=== PATIENT | male | born 1960 | race Caucasian/White ===

== ENCOUNTER → 2017-03-19 | Outpatient (CLI) | payer OTHER ==
[~2017-03-19] MED LIST: ASPI325T17 PO; ATOR10TA PO; CELE100C PO; CHOL500045 PO; GLUC1TAB55 PO; LISI5TAB7 PO; METFORMIN PO; METO50TA82 PO; MULT-658 PO
== END | disposition home or self-care (01) ==
LOC: CFH 08:40
PROVIDERS: ATTEND Family Medicine
DX: Z12.2 Encounter for screening for malignant neoplasm of respiratory organs (principal); R91.1 Solitary pulmonary nodule; I25.10 Atherosclerotic heart disease of native coronary artery without angina pectoris; F17.210 Nicotine dependence, cigarettes, uncomplicated
CPT/HCPCS: G0297

== ENCOUNTER → 2017-06-06 | Outpatient (CLI) | payer OTHER ==
[~2017-06-06] MED LIST changes: +OMNIPAQUE 350 MG/ML, 100ML BOTTLE ONE
== END ==
LOC: CFH 11:27
PROVIDERS: ATTEND Physician Assistant Medical
DX: K76.0 Fatty (change of) liver, not elsewhere classified (principal); E66.9 Obesity, unspecified; R63.8 Other symptoms and signs concerning food and fluid intake; G47.30 Sleep apnea, unspecified; Z72.4 Inappropriate diet and eating habits; Z87.891 Personal history of nicotine dependence
CPT/HCPCS: 74177; Q9967

== ENCOUNTER 2017-08-21 14:26 | Day surgery (SDC) | payer OTHER ==
[~2017-08-21] VITALS: Ht 195.6 cm; Wt 118.2 kg
[~2017-08-21 14:26] MED LIST changes: +CHOL5000 PO; +CYCL-259 PO; +HYDR-3237 PO; -OMNIPAQUE 350 MG/ML, 100ML BOTTLE ONE; +gabapentin PO
[2017-08-21] MEDS ORDERED: LACTATED RINGERS 1,000 ML IV SCH (14:56)
[2017-08-21 14:57] VITALS: BP 134/79
[2017-08-21] MEDS ORDERED: EPINEPHRINE 1 MG/ML, 1ML ONE (16:45)
[2017-08-21] MEDS ORDERED: BUPIVACAINE/PF 0.5% ONE (16:45)
[2017-08-21] MEDS ORDERED: FENTANYL PF 250 MCG/5ML ONE (16:50)
[2017-08-21] MEDS ORDERED: MIDAZOLAM 1 MG/ML, 2ML ONE (16:50)
[2017-08-21] MEDS ORDERED: ROCURONIUM 10 MG/ML,10ML ONE (17:27)
[2017-08-21] MEDS ORDERED: PROPOFOL 10 MG/ML, 20ML ONE (17:27)
[2017-08-21] MEDS ORDERED: ONDANSETRON 2MG/ML, 2ML ONE (17:27)
[2017-08-21] MEDS ORDERED: CEFAZOLIN 1,000 MG ONE (17:27)
[2017-08-21] MEDS ORDERED: SUCCINYLCHOLINE 20 MG/ML, 10ML ONE (17:27)
[2017-08-21] MEDS ORDERED: DEXAMETHASONE 4 MG/ML, 1ML ONE (17:27)
[2017-08-21] MEDS ORDERED: BUPIVACAINE/PF-EPI 0.5% 1:200K IM ONE (17:59)
[2017-08-21] MEDS ORDERED: MEPERIDINE/PF 25MG/0.5ML IVPush PRN ×2 (18:00)
[2017-08-21] MEDS ORDERED: HYDROmorphone 1 MG/ML, 1ML IV PRN ×2 (18:00)
[2017-08-21] MEDS ORDERED: KETOROLAC 30 MG/1 ML IV PRN ×2 (18:00)
[2017-08-21] MEDS ORDERED: hydrALAzine 20 MG/ML, 1ML IV PRN ×2 (18:00)
[2017-08-21] MEDS ORDERED: ALBUTEROL SULFATE 2.5 MG/3 ML NPPB PRN ×2 (18:00)
[2017-08-21] MEDS ORDERED: LABETALOL 5MG/ML, 20ML IV PRN ×2 (18:00)
[2017-08-21] MEDS ORDERED: ONDANSETRON 2MG/ML, 2ML IVPush PRN ×3 (18:00→19:00)
[2017-08-21] MEDS ORDERED: FENTANYL PF 100 MCG/2ML IV PRN (18:00)
[2017-08-21] MEDS ORDERED: OXYcodone 5 MG/5 ML ORAL.SOL UDC PO PRN ×2 (18:00→19:00)
[2017-08-21] MEDS ORDERED: PROMETHAZINE 25 MG/ML, 1ML IV PRN ×2 (18:00)
[2017-08-21] MEDS ORDERED: METOCLOPRAMIDE 5 MG/ML, 2ML IV PRN ×2 (18:00)
[2017-08-21] MEDS ORDERED: OXYcodone 5 MG/5 ML ORAL.SOL UDC ONE (18:48)
[2017-08-21] MEDS ORDERED: FENTANYL PF 100 MCG/2ML ONE (18:48)
[2017-08-21] MEDS: OXYcodone 5 MG/5 ML ORAL.SOL UDC PO PRN ×2 (18:55→22:59)
[2017-08-21] MEDS: FENTANYL PF 100 MCG/2ML IV PRN ×2 (18:55→19:10)
[2017-08-21] MEDS: morphine SULFATE 10 MG/ML, 1ML IVPush PRN ×3 (21:39→22:23)
== END 2017-08-21 23:52 | disposition home or self-care (01) ==
LOC: OR 14:26 → 4NOR 19:49 → OR 23:52
PROVIDERS: ATTEND Surgery
DX: K40.90 Unilateral inguinal hernia, without obstruction or gangrene, not specified as recurrent (principal); K42.0 Umbilical hernia with obstruction, without gangrene; D17.6 Benign lipomatous neoplasm of spermatic cord; I10 Essential (primary) hypertension; F17.210 Nicotine dependence, cigarettes, uncomplicated; Z88.0 Allergy status to penicillin; Z95.1 Presence of aortocoronary bypass graft; Z98.890 Other specified postprocedural states
CPT/HCPCS: 49650; 49653; C1781; J0171; J0330; J0690; J1100; J2250; J2270; J2405; J2704; J3010; J3490; J7120; S2900

== ENCOUNTER 2018-03-25 11:06 | Outpatient (CLI) | payer OTHER | END 2018-03-25 23:59 | disposition home or self-care (01) | LOC: CFH 11:06 | PROVIDERS: ATTEND Family Medicine | DX: Z12.2 Encounter for screening for malignant neoplasm of respiratory organs (principal); R91.1 Solitary pulmonary nodule; F17.210 Nicotine dependence, cigarettes, uncomplicated | CPT/HCPCS: G0297 ==

== ENCOUNTER → 2019-05-05 | Outpatient (CLI) | payer OTHER | END | disposition home or self-care (01) | LOC: CFH 10:00 | PROVIDERS: ATTEND Family Medicine | DX: Z12.2 Encounter for screening for malignant neoplasm of respiratory organs (principal); R91.8 Other nonspecific abnormal finding of lung field; Z87.891 Personal history of nicotine dependence | CPT/HCPCS: G0297 ==

== ENCOUNTER 2019-07-25 08:33 | Emergency (ER) | payer OTHER ==
[~2019-07-25] VITALS: Ht 193 cm; Wt 122.0 kg
[2019-07-25] MEDS ORDERED: SODIUM CHLORIDE 0.9% 1,000ML IVBOLUS ONE (10:00)
[2019-07-25 10:18] LABS: BASOPHILS # (AUTO) 0.02 x10^3/uL (0-0.1); BASOPHILS % (AUTO) 0 % (0-1); EOSINOPHILS # (AUTO) 0.01 x10^3/uL (0-0.4); EOSINOPHILS % (AUTO) 0 % (1-7); LYMPHOCYTES # (AUTO) 0.86 x10^3/uL (1-3.4); LYMPHOCYTES % (AUTO) 12 % (22-44); MD NO; MEAN CORPUSCULAR HEMOGLOBIN 30.8 pg (27.5-34.5); MEAN CORPUSCULAR HGB CONC 33.3 g/dL (33.2-36.2); MEAN CORPUSCULAR VOLUME 92.4 fL (81-97); MEAN PLATELET VOLUME 8.4 fL (7.4-10.4); MONOCYTES # (AUTO) 0.37 x10^3/uL (0.2-0.8); MONOCYTES % (AUTO) 5 % (2-9); NEUTROPHILS # (AUTO) 6.25 x10^3/uL (1.8-6.8); NEUTROPHILS % (AUTO) 83 % (42-75); PLATELET COUNT 252 x10^3/uL (130-400); RED BLOOD COUNT 4.99 x10^6/uL (4.38-5.82); RED CELL DISTRIBUTION WIDTH 14.1 % (9.4-14.8)
[2019-07-25] MEDS ORDERED: ATOR40TA PO (10:24)
[2019-07-25 10:26] LABS: ANION GAP 11 mmol/L (5-15); CALCIUM 9.2 mg/dL (8.5-10.1); CHLORIDE 109 mmol/L (98-107)
[2019-07-25 10:36] LABS: CREATININE 0.74 mg/dL (0.7-1.3)
[2019-07-25 10:59] LABS: MICROSCOPIC NOT IND
--- NOTE | 2019-07-25 11:20 | NUR ---
ORTHO STATICS DONE. PT BP STABLE IN ALL POSTIONS.
--- NOTE | 2019-07-25 12:23 | NUR ---
AMBULATED PT. PT AMBULATED STEADY GAIT AND WITHOUT ASSISTANCE.
[2019-07-25 12:58] VITALS: BP 136/77
== END 2019-07-25 13:06 | disposition home or self-care (01) ==
LOC: ED 09:20
DX: R55 Syncope and collapse (principal); R42 Dizziness and giddiness; R41.9 Unspecified symptoms and signs involving cognitive functions and awareness; R00.0 Tachycardia, unspecified; F17.210 Nicotine dependence, cigarettes, uncomplicated; G43.909 Migraine, unspecified, not intractable, without status migrainosus; E78.5 Hyperlipidemia, unspecified; E66.9 Obesity, unspecified; Z68.37 Body mass index [BMI] 37.0-37.9, adult
CPT/HCPCS: 36415; 80048; 81003; 84443; 85025; 93005; 96360; 96361; 99285; J7030; 82962

== ENCOUNTER 2019-08-11 07:30 | Outpatient (CLI) | payer OTHER ==
[~2019-08-11 07:30] MED LIST changes: +ATOR40TA PO
[2019-08-11] MEDS ORDERED: GADOTERATE 10 MMOL/20 ML VIAL ONE (10:36)
== END 2019-08-11 23:59 | disposition home or self-care (01) ==
LOC: RAD 07:30
PROVIDERS: ATTEND Psychiatry & Neurology Neurology
DX: I66.22 Occlusion and stenosis of left posterior cerebral artery (principal); H81.13 Benign paroxysmal vertigo, bilateral; G45.1 Carotid artery syndrome (hemispheric)
CPT/HCPCS: 70545; 70548; 70553; A9575

== ENCOUNTER 2019-10-22 14:02 | Inpatient (IN) | payer OTHER ==
[~2019-10-22] VITALS: Ht 195.6 cm; Wt 118.2 kg
--- NOTE | 2019-10-22 14:15 | NUR ---
Code Neuro called @ 1351 after [facility] pre-alert. Neurology paged on patients arrival. Dr. Saini called back immediately and spoke with Dr. Cabello.
[2019-10-22] MEDS ORDERED: OMNIPAQUE 350 MG/ML, 100ML BOTTLE ONE (14:28)
--- NOTE | 2019-10-22 14:31 | NUR ---
TRIAGE BY THIS RN. ON RETURN FROM CT, NEURO EXAM WNL WITH DR AKHTAR. NEUROLOGIST IN TO SEE PT. PT NOW WITH DIFFICULTY FOLLOWING COMMANDS, IMPAIRED SPEECH-PT UNABLE TO USE CORRECT WORDS OR FORM FULL SENTENCES OR ANSWER QUESTIONS APPROPRIATELY. REPORT TO PRIMARY RNJUAN CARLOS.
[2019-10-22 14:44] LABS: BASOPHILS # (AUTO) 0.01 x10^3/uL (0-0.1); BASOPHILS % (AUTO) 0 % (0-1); EOSINOPHILS % (AUTO) 0 % (1-7); LYMPHOCYTES # (AUTO) 0.72 x10^3/uL (1-3.4); LYMPHOCYTES % (AUTO) 13 % (22-44); MD NO; MEAN CORPUSCULAR HEMOGLOBIN 30.4 pg (27.5-34.5); MEAN CORPUSCULAR HGB CONC 33.8 g/dL (33.2-36.2); MEAN CORPUSCULAR VOLUME 89.9 fL (81-97); MEAN PLATELET VOLUME 8.6 fL (7.4-10.4); MONOCYTES # (AUTO) 0.34 x10^3/uL (0.2-0.8); MONOCYTES % (AUTO) 6 % (2-9); NEUTROPHILS # (AUTO) 4.65 x10^3/uL (1.8-6.8); NEUTROPHILS % (AUTO) 81 % (42-75); PLATELET COUNT 222 x10^3/uL (130-400); RED CELL DISTRIBUTION WIDTH 13.7 % (9.4-14.8)
[2019-10-22 14:54] LABS: TROPONIN I < 0.015 ng/mL (0.000-0.045)
[2019-10-22] MEDS ORDERED: LORazepam 2 MG/ML, 1ML ONE (14:55)
--- NOTE | 2019-10-22 15:18 | NUR ---
PT TO MRI NOW
--- NOTE | 2019-10-22 15:27 | NUR ---
RECEIVED REPORT FROM JUAN CARLOS. PT HAS NOT RETURNED FROM MRI.
--- NOTE | 2019-10-22 15:50 | NUR ---
PT RETURNED FROM MRI, RESTING COMFORTABLY ON GURNEY WITH EYES CLOSED. COMFORT MEASURES ADDRESSED, AT BEDSIDE, CALL LIGHT WITHIN REACH.
[2019-10-22] MEDS ORDERED: LORazepam 2 MG/ML, 1ML IVPush ONE (16:00)
--- NOTE | 2019-10-22 16:05 | NUR ---
PT TRANSFERED TO T3 UPON MRI RESULT. RETURNED TO CARE OF PRIMARY RN JUAN CARLOS.
[2019-10-22] MEDS: SODIUM CHLORIDE 0.9% 1,000 ML IV SCH (16:15)
[2019-10-22] MEDS ORDERED: ONDANSETRON 2MG/ML, 2ML IVPush PRN (16:30)
[2019-10-22] MEDS ORDERED: OXYcodone IR 5MG TABLET PO PRN (16:30)
[2019-10-22] MEDS ORDERED: ALTEPLASE 81 MG in VIAL 1 EACH IV ONE (16:30)
[2019-10-22] MEDS ORDERED: POLYETHYLENE GLYCOL 17 GM PACKET PO PRN (16:30)
[2019-10-22] MEDS ORDERED: ALTEPLASE 9 MG in SYRINGE 1 EA IVPush ONE (16:30)
[2019-10-22] MEDS ORDERED: LABETALOL 5MG/ML, 20ML IVPush PRN (16:30)
[2019-10-22] MEDS ORDERED: ENALAPRILAT 1.25 MG/ML, 2ML IVPush PRN (16:30)
[2019-10-22] MEDS ORDERED: ALTEPLASE IV ONE (16:30)
[2019-10-22] MEDS ORDERED: BISACODYL 10 MG SUPP PR PRN (16:30)
[2019-10-22] MEDS ORDERED: ACETAMINOPHEN 325 MG TABLET PO PRN (16:30)
[2019-10-22 16:31] LABS: INTERNATIONAL NORMALIZED RATIO 1.04 (0.93-1.1); PROTHROMBIN TIME 10.7 Seconds (9.6-11.5)
[2019-10-22] MEDS ORDERED: ONDANSETRON 2MG/ML, 2ML ONE (16:44)
[2019-10-22] MEDS ORDERED: ALTEPLASE 1 ML ONE (16:59)
[2019-10-22] MEDS ORDERED: ONDANSETRON 2MG/ML, 2ML IVPush ONE (17:00)
--- NOTE | 2019-10-22 17:18 | NUR ---
PT RESTING COMFORTABLY IN BED. AT BEDSIDE. Q [address] REFER TO [facility] NEURO FLOW SHEET.
[2019-10-22] MEDS: ATORVASTATIN 80 MG TABLET PO SCH (20:20)
[2019-10-22 22:10] VITALS: BP 112/68
[2019-10-23] MEDS ORDERED: LORazepam 2 MG/ML, 1ML IVPush ONE (02:00)
[2019-10-23] MEDS ORDERED: LORazepam 2 MG/ML, 1ML IM PRN ×2 (02:00)
[2019-10-23] MEDS ORDERED: LORazepam 2 MG/ML, 1ML ONE (02:06)
[2019-10-23] MEDS ORDERED: HALOPERIDOL 5 MG/ML ONE (02:12)
[2019-10-23] MEDS: HALOPERIDOL 5 MG/ML IM PRN ×2 (02:16→10:54)
[2019-10-23] MEDS: SODIUM CHLORIDE 0.9% 1,000 ML IV SCH (03:40)
[2019-10-23] MEDS ORDERED: PROMETHAZINE 25 MG/ML, 1ML IM PRN (04:00)
[2019-10-23 04:19] VITALS: BP 136/78
[2019-10-23] MEDS: SENNA/DOCUSATE TABLET PO SCH (09:00)
[2019-10-23] MEDS ORDERED: ZIPRASIDONE 20MG CAPSULE PO PRN (10:00)
[2019-10-23] MEDS: ZIPRASIDONE 20 MG INJ IM PRN (16:19)
[2019-10-23 17:22] LABS: BASOPHILS # (AUTO) 0.03 x10^3/uL (0-0.1); BASOPHILS % (AUTO) 0 % (0-1); EOSINOPHILS % (AUTO) 0 % (1-7); LYMPHOCYTES # (AUTO) 1.01 x10^3/uL (1-3.4); LYMPHOCYTES % (AUTO) 14 % (22-44); MD NO; MEAN CORPUSCULAR HEMOGLOBIN 30.1 pg (27.5-34.5); MEAN CORPUSCULAR VOLUME 91.3 fL (81-97); MEAN PLATELET VOLUME 8.5 fL (7.4-10.4); MONOCYTES # (AUTO) 0.35 x10^3/uL (0.2-0.8); MONOCYTES % (AUTO) 5 % (2-9); NEUTROPHILS # (AUTO) 5.92 x10^3/uL (1.8-6.8); NEUTROPHILS % (AUTO) 81 % (42-75); PLATELET COUNT 209 x10^3/uL (130-400); RED BLOOD COUNT 5.28 x10^6/uL (4.38-5.82); RED CELL DISTRIBUTION WIDTH 13.3 % (9.4-14.8)
[2019-10-23 17:28] LABS: ALANINE AMINOTRANSFERASE 17 U/L (12-78); ALBUMIN 3.6 g/dL (3.4-5.0); ANION GAP 7 mmol/L (5-15); CALCIUM 9.5 mg/dL (8.5-10.1); CHLORIDE 107 mmol/L (98-107); CREATININE 0.67 mg/dL (0.7-1.3)
[2019-10-23 17:30] LABS: ALKALINE PHOSPHATASE 87 U/L (45-117); BILIRUBIN,TOTAL 0.5 mg/dL (0.2-1.0); TOTAL PROTEIN 7.8 g/dL (6.4-8.2)
[2019-10-23 20:00] VITALS: BP 133/78
[2019-10-23] MEDS: D5%-0.9% NACL 1,000 ML IV SCH (20:22)
[2019-10-23] MEDS: ATORVASTATIN 80 MG TABLET PO SCH (20:22)
[2019-10-24 02:00] VITALS: BP 108/48
[2019-10-24 04:58] LABS: BASOPHILS # (AUTO) 0.05 x10^3/uL (0-0.1); BASOPHILS % (AUTO) 1 % (0-1); EOSINOPHILS # (AUTO) 0.03 x10^3/uL (0-0.4); EOSINOPHILS % (AUTO) 0 % (1-7); LYMPHOCYTES # (AUTO) 1.13 x10^3/uL (1-3.4); LYMPHOCYTES % (AUTO) 16 % (22-44); MD NO; MEAN CORPUSCULAR HEMOGLOBIN 30.2 pg (27.5-34.5); MEAN CORPUSCULAR HGB CONC 33.4 g/dL (33.2-36.2); MEAN CORPUSCULAR VOLUME 90.5 fL (81-97); MEAN PLATELET VOLUME 9.1 fL (7.4-10.4); MONOCYTES # (AUTO) 0.41 x10^3/uL (0.2-0.8); MONOCYTES % (AUTO) 6 % (2-9); NEUTROPHILS # (AUTO) 5.46 x10^3/uL (1.8-6.8); NEUTROPHILS % (AUTO) 77 % (42-75); PLATELET COUNT 213 x10^3/uL (130-400); RED BLOOD COUNT 5.29 x10^6/uL (4.38-5.82); RED CELL DISTRIBUTION WIDTH 13.4 % (9.4-14.8)
[2019-10-24 05:05] LABS: ANION GAP 7 mmol/L (5-15); CALCIUM 9.2 mg/dL (8.5-10.1); CHLORIDE 107 mmol/L (98-107); CREATININE 0.72 mg/dL (0.7-1.3)
[2019-10-24] MEDS: D5%-0.9% NACL 1,000 ML IV SCH (06:15)
[2019-10-24 08:00] VITALS: BP 149/87
[2019-10-24] MEDS ORDERED: CLOPIDOGREL 75 MG TABLET PO SCH (09:00)
[2019-10-24] MEDS: SENNA/DOCUSATE TABLET PO SCH (09:00)
[2019-10-24] MEDS: ATORVASTATIN 80 MG TABLET PO SCH (09:25)
[2019-10-24] MEDS: ASPIRIN 81 MG TABLET EC PO SCH (09:25)
--- NOTE | 2019-10-24 12:59 | NUR ---
D/C rec: acute rehab Addendum: 10/24/19 at [address] Amended: Links added.
[2019-10-24 14:21] VITALS: BP 138/58
[2019-10-24 21:20] VITALS: BP 116/55
[2019-10-24] MEDS: ZIPRASIDONE 20 MG INJ IM PRN (23:34)
[2019-10-25 00:46] VITALS: BP 128/79
[2019-10-25] MEDS: ASPIRIN 81 MG TABLET EC PO SCH (05:45)
[2019-10-25 08:15] VITALS: BP 124/81
[2019-10-25] MEDS: SENNA/DOCUSATE TABLET PO SCH (08:18)
[2019-10-25 14:03] VITALS: BP 122/76
[2019-10-25] MEDS ORDERED: HALOPERIDOL 5 MG/ML IM PRN (16:00)
[2019-10-25] MEDS: DIVALPROEX 125 MG CAP.SPRINK PO SCH (17:22)
[2019-10-25] MEDS ORDERED: QUETIAPINE 25MG TABLET PO PRN (18:00)
[2019-10-25 21:37] VITALS: BP 117/72
[2019-10-25] MEDS: ATORVASTATIN 80 MG TABLET PO SCH (21:43)
[2019-10-26 01:22] VITALS: BP 119/71
[2019-10-26 06:54] VITALS: BP 117/71
[2019-10-26] MEDS: ASPIRIN 81 MG TABLET EC PO SCH (08:18)
[2019-10-26] MEDS: DIVALPROEX 125 MG CAP.SPRINK PO SCH ×2 (08:18→17:24)
[2019-10-26] MEDS: SENNA/DOCUSATE TABLET PO SCH (08:18)
[2019-10-26 12:25] VITALS: BP 126/78
[2019-10-26 20:00] VITALS: BP 126/82
[2019-10-26] MEDS: ATORVASTATIN 80 MG TABLET PO SCH (21:00)
[2019-10-27 01:51] VITALS: BP 125/81
[2019-10-27 07:07] VITALS: BP 126/80
[2019-10-27] MEDS: SENNA/DOCUSATE TABLET PO SCH (09:00)
[2019-10-27] MEDS: ASPIRIN 81 MG TABLET EC PO SCH (10:06)
[2019-10-27] MEDS: DIVALPROEX 125 MG CAP.SPRINK PO SCH ×2 (10:06→18:03)
[2019-10-27 13:13] VITALS: BP 151/72
[2019-10-27 20:00] VITALS: BP 125/82
[2019-10-27] MEDS: ATORVASTATIN 80 MG TABLET PO SCH (21:00)
[2019-10-28 02:00] VITALS: BP 119/74
[2019-10-28 08:01] VITALS: BP 132/84
[2019-10-28] MEDS: DIVALPROEX 125 MG CAP.SPRINK PO SCH ×2 (08:06→16:58)
[2019-10-28] MEDS: SENNA/DOCUSATE TABLET PO SCH (08:06)
[2019-10-28] MEDS: ASPIRIN 81 MG TABLET EC PO SCH (08:06)
[2019-10-28 13:29] VITALS: BP 128/81
[2019-10-28 19:46] VITALS: BP 108/64
[2019-10-28] MEDS: ATORVASTATIN 80 MG TABLET PO SCH (20:05)
[2019-10-29 01:11] VITALS: BP 116/76
[2019-10-29 06:30] VITALS: BP 113/76
[2019-10-29] MEDS: SENNA/DOCUSATE TABLET PO SCH (08:00)
[2019-10-29] MEDS: ASPIRIN 81 MG TABLET EC PO SCH (08:00)
[2019-10-29] MEDS: DIVALPROEX 125 MG CAP.SPRINK PO SCH (08:00)
[2019-10-29] MEDS ORDERED: DIVA250T PO (12:54)
[2019-10-29] MEDS ORDERED: ATOR-2 PO (12:54)
[2019-10-29] MEDS ORDERED: ASPI81TA45 PO (12:54)
[2019-10-29 13:06] VITALS: BP 115/73
== END 2019-10-29 15:37 | disposition home health service (06) | DRG 61 ==
LOC: ED 14:48 → EDIP 16:08 → CCU 18:15 → 5SO 10-24 17:18
PROVIDERS: ADMIT Internal Medicine; ATTEND Internal Medicine
DX: I63.40 Cerebral infarction due to embolism of unspecified cerebral artery (principal); G93.41 Metabolic encephalopathy; G81.91 Hemiplegia, unspecified affecting right dominant side; I16.1 Hypertensive emergency; E55.9 Vitamin D deficiency, unspecified; E66.9 Obesity, unspecified; E78.5 Hyperlipidemia, unspecified; F17.210 Nicotine dependence, cigarettes, uncomplicated; F91.9 Conduct disorder, unspecified; G43.109 Migraine with aura, not intractable, without status migrainosus; G62.9 Polyneuropathy, unspecified; H93.12 Tinnitus, left ear; H93.19 Tinnitus, unspecified ear; I10 Essential (primary) hypertension; I65.23 Occlusion and stenosis of bilateral carotid arteries; J44.9 Chronic obstructive pulmonary disease, unspecified; R41.89 Other symptoms and signs involving cognitive functions and awareness; R47.01 Aphasia; H53.2 Diplopia; E78.00 Pure hypercholesterolemia, unspecified; F17.200 Nicotine dependence, unspecified, uncomplicated; R29.702 NIHSS score 2; Z78.1 Physical restraint status; Z80.9 Family history of malignant neoplasm, unspecified; Z82.3 Family history of stroke; Z82.49 Family history of ischemic heart disease and other diseases of the circulatory system; Z82.5 Family history of asthma and other chronic lower respiratory diseases; Z86.73 Personal history of transient ischemic attack (TIA), and cerebral infarction without residual deficits; Z90.49 Acquired absence of other specified parts of digestive tract; Z79.01 Long term (current) use of anticoagulants; Z98.84 Bariatric surgery status; Z79.899 Other long term (current) drug therapy; Z88.0 Allergy status to penicillin; Z91.018 Allergy to other foods; Z88.1 Allergy status to other antibiotic agents; Z83.6 Family history of other diseases of the respiratory system; Z68.30 Body mass index [BMI] 30.0-30.9, adult
CPT/HCPCS: 36415; 96374; 96375; 99291; J7042; 70450; 70496; 70498; 70551; 71045; 80047; 80048; 80053; 84484; 85025; 85610; 85730; 87081; 93306; G0378; J2405; J2550; J2997; J3486; Q9967; 92523-GN; J1630; J2060; J7030